=== PATIENT | female | born 1955 | race African-American/Black ===

== ENCOUNTER 2024-09-28 08:54 | Inpatient (IN) | payer OTHER ==
[2024-09-28 10:18] LABS: ABSOLUTE IMMATURE GRANULOCYTES 0.06 x10^3/uL (0.0-0.031); BASOPHILS # 0.03 x10^3/uL (0.01-0.08); EOSINOPHIL % 1.3 % (0.7-5.8); EOSINOPHILS # 0.10 x10^3/uL (0.04-0.36); MCHC 33.1 g/dl (32.2-35.5); MEAN CELL VOLUME 90.8 fl (79.4-94.8); MEAN PLT VOLUME 11.7 fl (9.4-12.3); MONOCYTE # 0.60 x10^3/uL (0.24-0.86); MONOCYTE % 7.9 % (4.7-12.5); RDW 15.3 % (12.4-16.4)
[2024-09-28 10:50] LABS: CO2 24.0 mmol/L (21-32); GLUCOSE,RANDOM 86.0 mg/dL (74-106)
[2024-09-28 10:53] LABS: CREATININE 1.2 mg/dL (0.55-1.3); SGOT/AST 43.0 U/L (15-37); SGPT/ALT 52.0 U/L (13-61)
[2024-09-28 10:55] LABS: TOT PROT 7.3 g/dl (6.4-8.2)
[2024-09-28 10:56] LABS: ALK PHOS 107.0 U/L (45-117)
[2024-09-28] MEDS: SODIUM CHLORIDE 0.9% 500 ML INFUS.BAG IV ONE (11:01)
[2024-09-28 12:44] LABS: EPI CELLS 8 /uL (0-25.1); HYALINE CASTS 0 /uL (0-3.1); URINE APPEARANCE CLOUDY; URINE BACTERIA >9,000 /uL (0-1359); URINE BILIRUBIN NEGATIVE (NEGATIVE); URINE COLOR YELLOW; URINE GLUCOSE (UA) NEGATIVE (NEGATIVE); URINE KETONE NEGATIVE (NEGATIVE); URINE LEUK ESTERASE 2+ (NEGATIVE); URINE NITRITE NEGATIVE (NEGATIVE); URINE PROTEIN NEGATIVE (NEGATIVE); URINE RBC 16 /uL (0-23.9); URINE UROBILINOGEN 0.2 mg/dL (0.2-1.0); URINE WBC 96 /uL (0-25.8)
[2024-09-28 12:50] LABS: CO2 23.0 mmol/L (21-32); GLUCOSE,RANDOM 77.0 mg/dL (74-106)
[2024-09-28 12:53] LABS: CREATININE 0.9 mg/dL (0.55-1.3); SGOT/AST 26.0 U/L (15-37); SGPT/ALT 43.0 U/L (13-61)
[2024-09-28 12:55] LABS: TOT PROT 6.0 g/dl (6.4-8.2)
[2024-09-28 12:56] LABS: ALK PHOS 105.0 U/L (45-117)
[2024-09-28] MEDS ORDERED: CEFTRIAXONE 1 GM/50 ML BAG ONE (13:34)
[2024-09-28] MEDS: HALOPERIDOL LACTATE 5 MG/ML IM ONE (14:21)
[2024-09-28 15:08] LABS: HCV DIAGNOSTIC IN-HOUSE W/RFLX NON-REACTIVE (NONREACTIVE)
[2024-09-28 15:15] LABS: HIV INTERPRETATION NEGATIVE (NEGATIVE)
[2024-09-28] MEDS: DIVALPROEX SODIUM 250 MG TABLET E.C. PO SCH (16:16)
[2024-09-28 16:32] VITALS: BMI 24.9
[2024-09-28] MEDS: HALOPERIDOL 1 MG TABLET PO SCH (17:54)
[2024-09-28] MEDS: BREXPIPRAZOLE (REXULTI) 1 MG TABLET (RESTRICTED TO PSYCIATRY) PO SCH (17:55)
[2024-09-28] MEDS: ATORVASTATIN CA 20 MG TABLET (FP) PO SCH (21:27)
[2024-09-28] MEDS: HEPARIN NA (PORCINE) 5,000 UNITS/ML 1ML VIAL SQ SCH (21:27)
[2024-09-28] MEDS: MELATONIN 5 MG TABLETS PO SCH (21:27)
[2024-09-28] MEDS ORDERED: BREXPIPRAZOLE (REXULTI) 1 MG TABLET (RESTRICTED TO PSYCIATRY) PO SCH (22:00)
[2024-09-28] MEDS ORDERED: HALOPERIDOL 1 MG TABLET PO SCH (22:00)
[2024-09-28] MEDS ORDERED: DIVALPROEX SODIUM 250 MG TABLET E.C. PO SCH (22:00)
[2024-09-29] MEDS: LISINOPRIL 5 MG TABLET PO SCH (09:07)
[2024-09-29] MEDS: ASPIRIN 81 MG CHEWABLE TABLETS PO SCH (09:07)
[2024-09-29 09:12] LABS: ABSOLUTE IMMATURE GRANULOCYTES 0.08 x10^3/uL (0.0-0.031); BASOPHILS # 0.04 x10^3/uL (0.01-0.08); EOSINOPHIL % 1.5 % (0.7-5.8); EOSINOPHILS # 0.09 x10^3/uL (0.04-0.36); MCHC 33.1 g/dl (32.2-35.5); MEAN CELL VOLUME 89.9 fl (79.4-94.8); MEAN PLT VOLUME 10.6 fl (9.4-12.3); MONOCYTE # 0.51 x10^3/uL (0.24-0.86); MONOCYTE % 8.5 % (4.7-12.5); RDW 14.8 % (12.4-16.4)
[2024-09-29 10:01] LABS: CREATININE 1.1 mg/dL (0.55-1.3)
[2024-09-29 10:05] LABS: CO2 28.0 mmol/L (21-32); GLUCOSE,RANDOM 139.0 mg/dL (74-106)
[2024-09-29] MEDS: HALOPERIDOL LACTATE 5 MG/ML IM PRN (12:58)
[2024-09-29] MEDS: CEFTRIAXONE 2 GM in DEXTROSE 5%-WATER 100 ML IVPB SCH (16:48)
[2024-09-30 11:02] LABS: ABSOLUTE IMMATURE GRANULOCYTES 0.05 x10^3/uL (0.0-0.031); BASOPHILS # 0.03 x10^3/uL (0.01-0.08); EOSINOPHIL % 1.5 % (0.7-5.8); EOSINOPHILS # 0.08 x10^3/uL (0.04-0.36); MCHC 32.6 g/dl (32.2-35.5); MEAN CELL VOLUME 88.9 fl (79.4-94.8); MEAN PLT VOLUME 11.1 fl (9.4-12.3); MONOCYTE # 0.46 x10^3/uL (0.24-0.86); MONOCYTE % 8.6 % (4.7-12.5); RDW 14.7 % (12.4-16.4)
[2024-09-30 11:49] LABS: CO2 27.0 mmol/L (21-32); GLUCOSE,RANDOM 256.0 mg/dL (74-106)
[2024-09-30 11:52] LABS: CREATININE 1.1 mg/dL (0.55-1.3); SGOT/AST 39.0 U/L (15-37); SGPT/ALT 49.0 U/L (13-61)
[2024-09-30 11:54] LABS: TOT PROT 6.1 g/dl (6.4-8.2)
[2024-09-30 11:56] LABS: ALK PHOS 58.0 U/L (45-117)
[2024-10-01 09:30] LABS: ABSOLUTE IMMATURE GRANULOCYTES 0.06 x10^3/uL (0.0-0.031); BASOPHILS # 0.04 x10^3/uL (0.01-0.08); EOSINOPHIL % 1.4 % (0.7-5.8); EOSINOPHILS # 0.11 x10^3/uL (0.04-0.36); MCHC 32.9 g/dl (32.2-35.5); MEAN CELL VOLUME 89.2 fl (79.4-94.8); MEAN PLT VOLUME 11.2 fl (9.4-12.3); MONOCYTE # 0.57 x10^3/uL (0.24-0.86); MONOCYTE % 7.4 % (4.7-12.5); RDW 14.7 % (12.4-16.4)
[2024-10-01 10:22] LABS: CO2 27.0 mmol/L (21-32)
[2024-10-01 10:23] LABS: GLUCOSE,RANDOM 201.0 mg/dL (74-106)
[2024-10-01 10:26] LABS: CREATININE 1.2 mg/dL (0.55-1.3); SGOT/AST 52.0 U/L (15-37); SGPT/ALT 63.0 U/L (13-61)
[2024-10-01 10:27] LABS: TOT PROT 7.0 g/dl (6.4-8.2)
[2024-10-01 10:28] LABS: ALK PHOS 68.0 U/L (45-117)
[2024-10-02] MEDS: CEPHALEXIN MONOHYDRATE 500 MG CAPSULE (UD) PO SCH (10:40)
[2024-10-02] MEDS: HALOPERIDOL 1 MG TABLET PO SCH (10:41)
[2024-10-02 10:45] LABS: ABSOLUTE IMMATURE GRANULOCYTES 0.07 x10^3/uL (0.0-0.031); BASOPHILS # 0.02 x10^3/uL (0.01-0.08); EOSINOPHIL % 0.6 % (0.7-5.8); EOSINOPHILS # 0.05 x10^3/uL (0.04-0.36); MCHC 32.5 g/dl (32.2-35.5); MEAN CELL VOLUME 89.4 fl (79.4-94.8); MEAN PLT VOLUME 11.6 fl (9.4-12.3); MONOCYTE # 0.53 x10^3/uL (0.24-0.86); MONOCYTE % 6.6 % (4.7-12.5); RDW 14.8 % (12.4-16.4)
[2024-10-02 12:32] LABS: CO2 26.0 mmol/L (21-32); GLUCOSE,RANDOM 218.0 mg/dL (74-106)
[2024-10-02 12:35] LABS: CREATININE 1.1 mg/dL (0.55-1.3); SGOT/AST 93.0 U/L (15-37); SGPT/ALT 98.0 U/L (13-61)
[2024-10-02 12:37] LABS: TOT PROT 6.9 g/dl (6.4-8.2)
[2024-10-02 12:38] LABS: ALK PHOS 78.0 U/L (45-117)
[2024-10-04] MEDS: HALOPERIDOL 1 MG TABLET PO ONE (06:02)
[2024-10-04] MEDS: HALOPERIDOL 1 MG TABLET PO SCH (08:00)
[2024-10-04] MEDS ORDERED: HALOPERIDOL DECANOATE 100 MG/ML IM ONE (12:30)
[2024-10-04] MEDS: HALOPERIDOL LACTATE 5 MG/ML IM ONE (13:05)
[2024-10-04] MEDS ORDERED: HALOPERIDOL LACTATE 5 MG/ML IM PRN (13:48)
[2024-10-04 16:08] VITALS: BP 119/66; PULSE 85; RESP 16; TEMP 98.9
== END 2024-10-04 17:19 | DRG 690 ==
LOC: JER 08:54 → JERBED 12:48 → J5S 14:16
PROVIDERS: ADMIT Internal Medicine
DX: N39.0 Urinary tract infection, site not specified (principal); F03.918 Unspecified dementia, unspecified severity, with other behavioral disturbance; E11.9 Type 2 diabetes mellitus without complications; I10 Essential (primary) hypertension; E78.5 Hyperlipidemia, unspecified; R62.7 Adult failure to thrive; D50.9 Iron deficiency anemia, unspecified; B96.20 Unspecified Escherichia coli [E. coli] as the cause of diseases classified elsewhere; D32.9 Benign neoplasm of meninges, unspecified
CPT/HCPCS: 36415; 70450-TC; 71045-TC-FY; 80048; 80053; 81003; 82962; 83735; 84484; 85025; 86803; 87086; 87389; 93005; 93010; 99285-25